=== PATIENT | male | born 1945 | race Hispanic/Latino ===

== ENCOUNTER 2017-12-10 07:32 | Day surgery (SDC) | payer MEDICARE ==
[2017-12-10 08:07] VITALS: BMI 26.8
[2017-12-10 08:24] VITALS: O2SAT 98
[2017-12-10 08:29] LABS: INR 1.03; PROTHROMBIN TIME 11.9 SECONDS (9.4-12.5)
[2017-12-10 08:32] LABS: PARTIAL THROMBOPLASTIN TIME 35.9 Seconds (25.1-36.5)
[2017-12-10] MEDS ORDERED: Bupivacaine 0.5% Inj(30mL) ONE (10:03)
[2017-12-10] MEDS ORDERED: Liquid Adhesive TOP ONE (10:03)
[2017-12-10] MEDS ORDERED: Lidocaine 1% Inj (20ml) ONE (10:03)
[2017-12-10] MEDS ORDERED: Lidocaine 1% w Epi 1:100,000 Inj ONE (10:04)
[2017-12-10] MEDS ORDERED: Bacitracin Ointment 30 GM TUBE ONE (12:31)
[2017-12-10 13:06] VITALS: PULSE 54; RESP 20; TEMP 97.9
[2017-12-11 17:54] VITALS: BP 110/72
--- NOTE | 2017-12-14 13:31 | OP ---
Copied To: Mason Montaño MD Attending MD: Mason Montaño MD PROCEDURE DATE: 12/10/2017 PREOPERATIVE DIAGNOSIS: Basal cell of the chest wall. POSTOPERATIVE DIAGNOSIS: Basal cell of the chest wall. SURGEON: Mason Montaño MD. DESCRIPTION OF PROCEDURE: In the operating room, the patient was identified by name, name of the procedure, laterality and my haylee. An ellipse was made and the entire lesion was scored out. A silk was placed on the left side of the ellipse. The entire ellipse was removed and sent fresh to the lab. Above and below, flaps were raised to allow closure with 0 Vicryl. The skin was closed with several nylons and several mattress stitches. Light pressure dressing was applied. The patient was taken to the recovery room in good condition after the sponge and need count was declared correct. Mason Montaño MD
== END 2017-12-10 13:15 | disposition home or self-care (01) ==
LOC: OPSURG 07:32
PROVIDERS: ATTEND Surgery
DX: C44.519 Basal cell carcinoma of skin of other part of trunk (principal)